=== PATIENT | female | born 1980 | race Hispanic/Latino ===

== ENCOUNTER 2017-11-30 00:39 | Emergency (ER) | payer OTHER ==
[~2017-11-30] VITALS: Ht 162.6 cm; Wt 70.8 kg
[2017-11-30] MEDS ORDERED: HYDROCODONE/APAP 10MG-325MG TAB PO ONE (01:00)
--- NOTE | 2017-11-30 02:20 | Diagnostic Imaging Report ---
ANKLE 3+ VIEWS LEFT Comparison: None Clinical history: Left ankle pain after getting out of bed, popping sound Findings: No fracture or dislocation. Metallic densities only seen on AP view likely artifact. Impression: No acute bony abnormality Signed by: Dr Pina Pires MD on 11/30/2017 2:17 AM
== END 2017-11-30 02:37 | disposition home or self-care (01) ==
LOC: ER 00:39
DX: M66.872 Spontaneous rupture of other tendons, left ankle and foot (principal); Y93.39 Activity, other involving climbing, rappelling and jumping off; Y92.003 Bedroom of unspecified non-institutional (private) residence as the place of occurrence of the external cause
CPT/HCPCS: 99283